=== PATIENT | female | born 1960 | race Caucasian/White ===

== ENCOUNTER 2024-09-10 16:05 | Emergency (ER) | payer OTHER, SELFPAY ==
[2024-09-10 16:06] VITALS: BP 113/85
[2024-09-10 17:37] VITALS: BMI 20.7
[2024-09-10 17:38] VITALS: BP 106/73
[2024-09-10 18:00] VITALS: BP 94/63
[2024-09-10 18:03] LABS: % Basophils 0.6 % (0-2); % Eosinophils 1.1 % (0-6); % Immature Granulocytes 0.2 % (0-0.5); % Lymphocytes 41.8 % (20.5-51.1); % Monocytes 8.6 % (1.7-9.3); % Neutrophils 47.7 % (42.2-75.2); Absolute Eosinophils 0.1 10^3/uL (0-0.7); Absolute Lymphocytes 1.9 10^3/uL (1.2-3.4); Absolute Monocytes 0.4 10^3/uL (0.1-0.6); Absolute Neutrophils 2.2 10^3/uL (1.4-6.5); Hematocrit 40.2 % (37.0-47.0); Hemoglobin 13.9 g/dL (12.0-16.0); Mean Corp Hgb Conc. 34.6 g/dL (33.0-37.0); Mean Corpuscular Hgb 32.6 pg (27.0-31.0); Mean Corpuscular Volume 94.4 fL (81.0-99.0); Mean Platelet Volume 10.4 fL (7.4-10.4); Nucleated Red Blood Cells % 0 %; Platelet Count 192 10^3/uL (130-400); Red Blood Cell Count 4.26 10^6/uL (4.20-5.40); Red Cell Dist. Width 11.9 % (11.5-14.5); White Blood Cell Count 4.6 10^3/uL (4.8-10.8)
[2024-09-10 18:22] LABS: ALT (SGPT) 47 U/L (0-35); AST (SGOT) 29 U/L (14-36); Alkaline Phosphatase 50 U/L (38-126); Blood Urea Nitrogen 18 mg/dl (7-17); Calcium 10.1 mg/dl (8.4-10.2); Carbon Dioxide 27 mmol/L (22-30); Chloride 102 mmol/L (98-107); Estimated Creatinine Clearance 75 ml/min; Glucose 95 mg/dl (70-99); Potassium 4.3 mmol/L (3.5-5.1); Sodium 139 mmol/L (135-145); Total Bilirubin 0.6 mg/dl (0.2-1.3); Total Protein 7.5 g/dl (6.3-8.2); eGFR > 60.00
[2024-09-10 18:23] LABS: Lipase 170 U/L (23-300)
[2024-09-10 18:33] LABS: Troponin I < 0.012 ng/ml
[2024-09-10 19:00] VITALS: BP 111/99
[2024-09-10] MEDS: TORADOL 15 MG IV (20:16)
--- NOTE | 2024-09-10 20:18 | ED.GENMED ---
History of Present Illness
General
Chief Complaint: Abdominal Pain
Source: patient
Exam Limitations: none
Time Seen by Provider: 09/10/24 17:57
Nursing documentation reviewed up to this point in time: agreed with
History of Present Illness
History of Present Illness:
64-year-old female past medical history of IBS, kidney stones presenting to the emergency department today with concerns of abdominal pain as well as shoulder blade discomfort. Shoulder discomfort preceded the abdominal pain seems to be achy with
deep breaths and some movements over the past few days. Otherwise she has some random achy abdominal pain denies vomiting changes bowel movements fevers chest pain or shortness of breath.
Review of Systems
Review of Systems
Allergies reviewed?: Yes
All Other Systems: ROS reviewed and negative except as documented in HPI and ROS
Phy Exam
Physical Exam
Physical Exam:
GENERAL: Alert , in no apparent distress
EYE: pupils equal and reactive
NECK: Supple, no significant adenopathy.
ENT: o/p clr, mmm.
CARDIAC: Regular rate and rhythm .
LUNGS: Clear breath sounds bilaterally, no acute respiratory distress, no wheezes/rales/rhonchi
ABDOMEN: Soft, without focal tenderness, no r/g, no cvat
NEUROLOGICAL: Alert and oriented, no focal neuro deficits
SKIN: Warm and dry, skin intact.
MUSCULOSKELETAL: No edema, well perfused.
PSYCH: Normal and appropriate interaction.
Course
Orders/Labs/Results
Orders:
Orders
09/10/24 17:18
EKG [Electrocardiogram (*1)] Urgent
Reason for Study: Abdominal Pain
EKG- Treatment ONCE
09/10/24 17:49
CMP [Comprehensive Metabolic Panel] Urgent
Complete Blood Count/With Diff Urgent
Lipase Urgent
Troponin I Urgent
09/10/24 19:00
Chest [CR Chest - 2 Views ] Urgent
Comment:
Reason For Exam: upper back pain
09/10/24 20:07
Urinalysis Reflex To Culture Urgent
Date Specimen was Collected: 09/10/24
Time Specimen was Collected: 20:07
09/10/24 20:13
Ketorolac [Toradol] 15 mg IV NOW STA
09/10/24 21:04
D-Dimer Urgent
Abnormal Lab Results
09/10/24
17:49
WBC 4.6 L 10^3/uL
(4.8-10.8)
MCH 32.6 H pg
(27.0-31.0)
BUN 18 H mg/dl
(7-17)
ALT 47 H U/L
(0-35)
09/10/24 17:49
09/10/24 17:49
Vital Signs
Initial and Last Documented VS:
Initial Vital Signs
Temp Pulse Resp BP Pulse Ox
98.2 F 65 16 113/85 98
09/10/24 16:06 09/10/24 16:06 09/10/24 16:06 09/10/24 16:06 09/10/24 16:06
Last Documented Vital Signs
Temp Pulse Resp BP Pulse Ox
98.2 F 51 16 108/49 100
09/10/24 16:06 09/10/24 21:58 09/10/24 21:58 09/10/24 21:58 09/10/24 20:21
MDM/Problems Addressed
MDM/Problems Addressed:
64-year-old female presenting to the emergency department today with concerns of vague achiness to the right shoulder blade region made worse with some movements and deep breaths. Also has some vague abdominal pain that started more recently over
the past few days. Does a history of IBS denies specific vomiting or diarrhea. No chest pain or shortness of breath vital signs are normal on arrival labs unremarkable troponin negative EKG normal chest x-ray normal. D-dimer negative. No
evidence of emergent pathology patient additionally seen by attending physician Dr. Xiao. Return precautions given
*Critical Care Note
Total Time (30-74mins, 75-104mins- exclusive of procedures): Not Applicable
ED Attending Note
-
Portions of this chart may have been created with voice recognition software.� Occasional wrong word or��sound alike� substitutions may have occurred due to the inherent limitations of voice recognition software.
Discharge Plan
Departure
Patient Disposition: Home (Routine Discharge)
Date of Disposition: 09/10/24
Time of Disposition: 21:39
Patient with high blood pressure during this ER visit?: No
Condition: Good
Covid-19: Not Applicable
Discharge Problem:
Abdominal pain, Upper back pain
Instructions: Abdominal Pain
Referrals:
Danielle Lindsay, [Family Provider] -
Activity Restrictions/Additional Instructions:
You came to the emergency department today with concerns of abdominal pain and discomfort near shoulder blade. Here your reassuring assessment with normal vital signs normal labs negative troponin and D-dimer level normal urinalysis chest x-ray and
EKG. This is very reassuring for any emergent pathology. Please follow closely with your primary care doctor. Return for any worsening, new or concerning symptoms.
Interventions
Interventions:
*Risk Screen - Suicide Last Done: 09/10/24 16:06
*General Assessment Last Done: 09/10/24 17:37
*Neglect/Abuse Screening Last Done: 09/10/24 17:40
*ED- Fall Risk Assessment Last Done: 09/10/24 17:37
*ED COVID-19 Vaccine History Last Done: 09/10/24 17:47
*Nursing Disposition Last Done: 09/10/24 21:58
ZQ-Dowgvd-Vsupzsmrxh Assessment Last Done: 09/10/24 21:10
Discharge Date and Time
Discharge Date/Time: 09/10/24 22:00
Print Language: AZERI
[2024-09-10 20:19] VITALS: BP 117/61
[2024-09-10 20:22] LABS: Urine Albumin Negative (Neg - Trace); Urine Bilirubin Negative (Negative); Urine Character Clear (Clear); Urine Color Yellow; Urine Glucose Negative (Negative); Urine Ketone Negative (Negative); Urine Leukocyte Negative (Negative); Urine Nitrite Negative (Negative); Urine Occult Blood Negative (Negative); Urine Urobilinogen Negative (Neg - 1+)
[2024-09-10 21:28] LABS: D-Dimer < 0.27 ug/mlFEU (0.00-0.50)
[2024-09-10 21:58] VITALS: BP 108/49
== END 2024-09-10 22:00 | disposition home or self-care (01) ==
LOC: EMR 16:05
PROVIDERS: Physician Assistant; EMERGENCY PHYSICIAN Emergency Medicine; FAMILY PHYSICIAN Internal Medicine
DX: R10.9 Unspecified abdominal pain (principal); M54.6 Pain in thoracic spine; K58.9 Irritable bowel syndrome, unspecified; Z87.442 Personal history of urinary calculi
CPT/HCPCS: 99285; 96374; 71046; 80053; 81003; 83690; 84484; 85025; 85379; 93005